=== PATIENT | female | born 2000 ===

== ENCOUNTER 2021-05-04 09:53 | Outpatient (CLI) | payer BC ==
[2021-05-04 11:14] LABS: BHCG - Serum Negative (NEGATIVE); Pregs Control Background? CLEAR/WHITE (CLR/WHITE); Pregs Control Bar Appear? YES (CONTROL BAR)
[2021-05-05 00:31] LABS: SARS-CoV-2 PCR by NAA Not Detected (NotDetected)
== END 2021-05-04 09:54 | disposition home or self-care (01) ==
LOC: CSHLAB 09:53 → EDSEX 09:53 → CSHLAB 09:54
PROVIDERS: ATTEND Surgery
DX: Z01.812 Encounter for preprocedural laboratory examination (principal); Z20.822 Contact with and (suspected) exposure to COVID-19; K80.20 Calculus of gallbladder without cholecystitis without obstruction
CPT/HCPCS: 84703; U0003; U0005

== ENCOUNTER 2021-05-07 06:20 | Day surgery (SDC) | payer OTHER ==
[2021-05-07] MEDS ORDERED: Lidocaine 1% MPF 2 ML VIAL ONE (07:50)
[2021-05-07] MEDS ORDERED: Bupivacaine PF 0.5% 30 ML VIAL ONE (08:47)
[2021-05-07] MEDS ORDERED: EPINEPHrine 1 MG/ML AMP ONE (08:47)
[2021-05-07] MEDS ORDERED: HYDROcodone/Acetaminophen 5/325 mg Tablet PO PRN (08:51)
[2021-05-07] MEDS ORDERED: PROPOFOL 20 ML ONE (09:10)
[2021-05-07] MEDS ORDERED: Fentanyl 100 MCG/2 ML VIAL ONE (09:10)
[2021-05-07] MEDS ORDERED: Ondansetron PF 4 MG/2 ML Vial ONE (09:10)
[2021-05-07] MEDS ORDERED: Rocuronium Bromide 10 MG/ML (10ML VIAL) ONE (09:10)
[2021-05-07] MEDS ORDERED: Dexamethasone 4 mg/ml Vial ONE (09:10)
[2021-05-07] MEDS ORDERED: Midazolam HCl 2 mg/2 ml Vial ONE (09:10)
[2021-05-07] MEDS ORDERED: Lidocaine 1% PF 5 ML VIAL ONE (09:10)
[2021-05-07] MEDS ORDERED: Glycopyrrolate 0.2 MG/ML 5 ML SYRINGE ONE (09:10)
[2021-05-07] MEDS ORDERED: Ketorolac Tromethamine 30 MG/ML VIAL ONE (09:11)
[2021-05-07] MEDS ORDERED: Morphine 10 MG/ML VIAL ONE (10:22)
== END 2021-05-07 12:35 | disposition home or self-care (01) ==
LOC: EDSEX → CSHSDC 06:20
PROVIDERS: ATTEND Surgery
PROC: 0FT44ZZ Resection of Gallbladder, Percutaneous Endoscopic Approach (ICD-10-PCS; principal; 2021-05-07)
DX: K80.10 Calculus of gallbladder with chronic cholecystitis without obstruction (principal)
CPT/HCPCS: 88304; J0171; J0690; J1100; J1885; J2250; J2270; J2405; J2704; J3010; S0020